=== PATIENT | female | born 1980 | race Caucasian/White ===

== ENCOUNTER 2018-12-24 10:11 | Emergency (ER) | payer OTHER ==
[~2018-12-24] VITALS: Ht 160 cm; Wt 70.3 kg
[2018-12-24 11:38] LABS: URINE BILIRUBIN NEGATIVE (Negative); URINE BLOOD NEGATIVE (Negative); URINE CLARITY CLEAR; URINE COLOR YELLOW; URINE GLUCOSE-RANDOM NEGATIVE (Negative); URINE KETONES NEGATIVE (Negative); URINE LEUKOCYTES-REFLEX NEGATIVE (Negative); URINE NITRITE-REFLEX NEGATIVE (Negative); URINE PROTEIN NEGATIVE (Negative); URINE SPECIFIC GRAVITY 1.015 (1.005-1.030); URINE UROBILINOGEN 0.2 E.U./dl (0.2-1.0)
[2018-12-24] MEDS ORDERED: ONDANSETRON HCL4 M2 PO (11:42)
[2018-12-24] MEDS ORDERED: MEDROLDOSEPACK PO (11:42)
[2018-12-24] MEDS ORDERED: PERCOCET 7.5-31 EAC1 PO (11:42)
[2018-12-24] MEDS ORDERED: ROBAXIN 750 MG750 MG PO (11:42)
[2018-12-24] MEDS ORDERED: LIDODERM1 EACH TRANSDERM (11:43)
[2018-12-24 12:06] VITALS: BP 110/70
== END 2018-12-24 12:45 | disposition home or self-care (01) ==
LOC: M.ERS 10:11
PROVIDERS: Physician Assistant
DX: M54.5 Low back pain (principal); Z88.5 Allergy status to narcotic agent; Z88.8 Allergy status to other drugs, medicaments and biological substances; Z90.710 Acquired absence of both cervix and uterus